=== PATIENT | female | born 1990 | race Caucasian/White ===

== ENCOUNTER 2017-09-24 13:26 | Emergency (ER) | payer BC ==
[2017-09-24 14:00] LABS: Urine Bacteria 20-50 /HPF (<20); Urine Culture Reflex Order REFLEXED
[2017-09-24 14:03] LABS: Urine Blood 2+ (NEG); Urine Glucose NEGATIVE (NEG); Urine Protein TRACE (NEG); Urine Specific Gravity <1.005 (1.005-1.030)
[2017-09-24] MEDS ORDERED: ONDANSETRON 4 MG/2 ML VIAL ONE (14:04)
[2017-09-24 14:08] LABS: Absolute Lymphocytes (CBC) 2.5 K/uL (0.7-4.9); Absolute Monocytes 0.7 K/uL (0.1-1.3); Absolute Neutrophil 8.1 K/uL (1.8-8.0); Basophils % 0.7 % (0-1.3); Eosinophils % 1.7 % (0-4.4); Hematocrit 47.3 % (36.0-45.0); Lymphocytes % 21.9 % (15.3-44.8); MCH 27.9 pg (27.0-35.0); MCV 84.1 fL (80-100); Monocytes % 5.7 % (3.3-12.3); RBC Red Blood Cell Count 5.62 M/uL (3.86-4.86)
[2017-09-24] MEDS ORDERED: CEFTRIAXONE/SWI 1gm 1 GM/10 ML SYR ONE (14:08)
[2017-09-24 15:01] LABS: BUN Blood Urea Nitrogen 9 mg/dL (6-20); Bicarbonate 26 mEq/L (21-31); Glucose Level 102 mg/dL (65-120); Potassium 4.2 mEq/L (3.6-5.0); Sodium Level 136 mEq/L (135-145)
--- NOTE | 2017-09-24 15:38 | RAD REPORT ---
EXAM DESCRIPTION: CTAbdomen Pelvis W Contrast - 09/24/2017 3:30 pm CLINICAL HISTORY: Abdominal pain. COMPARISON: 11/28/2014 TECHNIQUE: Biphasic CT imaging of the abdomen and pelvis was performed with 100 ml non-ionic IV cont rast. All CT scans are performed using dose optimization technique as appropriate and may include automated exposure control or mA/KV adjustment according to patient size. FINDINGS: The lung bases are clear. The liver demonstrates diffuse fatty infiltration. The spleen, pancreas, adrenal glands and kidneys a re within normal limits. No bowel obstruction, free air, free fluid or abscess. Appendectomy. No evidence of significant lym phadenopathy. No suspicious bony findings. IMPRESSION: No acute intra-abdominal or pelvic finding.
--- NOTE | 2017-09-24 15:53 | EDPHYS ---
Physician Documentation [facility] Name: Peyton Shen Age: 27 yrs Sex: Female : 1990 Arrival Date: 09/24/2017 Time: 13:28 Bed 5 Private MD: Tory Lee ED Physician Adalid Mercado HPI: 09/24 14:28 This 27 yrs old Female presents to ER via Ambulatory with complaints of Back jr8 Pain, Pelvic Pain, Urinary Problem. 14:28 The patient presents with pain that is acute. The symptoms are located in the low back. jr8 Onset: The symptoms/episode began/occurred gradually, 2 day(s) ago. The pain radiates to the abdomen. Associated signs and symptoms: Pertinent positives: dysuria. Modifying factors: The patient symptoms are alleviated by nothing, the patient symptoms are aggravated by urinating. Severity of symptoms: At their worst the symptoms were moderate, in the emergency department the symptoms are unchanged. The patient has not experienced similar symptoms in the past. The patient has not recently seen a physician. Historical: - Allergies: 13:47 No Known Allergies; ss - Home Meds: 13:47 metformin 500 mg Oral tab 1 tab 2 times per day [Active]; BuSpar Oral 10 mg twice a day ss [Active]; spironolactone 100 mg Oral tab 1 tab 2 times per day [Active]; - PMHx: 13:47 PCOS; Anxiety; ss - PSHx: 13:47 C SECTION; Appendectomy; D\T\C; ss - Immunization history:: Adult Immunizations up to date. - Social history:: Smoking status: Patient/guardian denies using tobacco. - Ebola Screening: : Patient denies exposure to infectious person Patient denies travel to an Ebola-affected area in the 21 days before illness onset. ROS: 14:28 Eyes: Negative for injury, pain, redness, and discharge, ENT: Negative for injury, jr8 pain, and discharge, Neck: Negative for injury, pain, and swelling, Cardiovascular: Negative for chest pain, palpitations, and edema, Respiratory: Negative for shortness of breath, cough, wheezing, and pleuritic chest pain, MS/Extremity: Negative for injury and deformity, Skin: Negative for injury, rash, and discoloration, Neuro: Negative for headache, weakness, numbness, tingling, and seizure. 14:28 Abdomen/GI: Positive for abdominal pain, nausea, Negative for vomiting, diarrhea, constipation, abdominal cramps, abdominal distension, hematemesis, black/tarry stool, rectal pain, rectal bleeding, bowel incontinence, flatulence. 14:28 Back: Positive for pain at rest, flank pain, on the right, Negative for pain with movement. 14:28 : Positive for urinary symptoms, hematuria, burning with urination. Exam: 14:28 Cardiovascular: Regular rate and rhythm with a normal S1 and S2. No gallops, murmurs, jr8 or rubs. Normal PMI, no JVD. No pulse deficits. Respiratory: Lungs have equal breath sounds bilaterally, clear to auscultation and percussion. No rales, rhonchi or wheezes noted. No increased work of breathing, no retractions or nasal flaring. Skin: Warm, dry with normal turgor. Normal color with no rashes, no lesions, and no evidence of cellulitis. MS/ Extremity: Pulses equal, no cyanosis. Neurovascular intact. Full, normal range of motion. Neuro: Awake and alert, GCS 15, oriented to person, place, time, and situation. Cranial nerves II-XII grossly intact. Motor strength 5/5 in all extremities. Sensory grossly intact. Cerebellar exam normal. Normal gait. 14:28 Abdomen/GI: Inspection: obese Bowel sounds: active, Palpation: moderate abdominal tenderness, in the anterior aspect of right lateral abdomen, mass, is not appreciated, rebound tenderness, is not appreciated, voluntary guarding, is not appreciated, involuntary guarding, is not appreciated, no appreciated organomegaly, Indicators: McBurney's point is not tender, Andujar's sign is negative, Rovsing's sign is negative, Liver: no appreciated palpable abnormalities, tenderness, is not appreciated. 14:28 Back: pain, is absent, CVA tenderness, that is mild, is noted on the right, muscle spasm, is not present. Vital Signs: 13:41 BP 151 / 112; Pulse 110; Pulse Ox 100% ; sv 13:47 Resp 16; Temp 97.7(TE); Weight 108.86 kg; Height 5 ft. 6 in. (167.64 cm); Pain 4/10; ss 14:44 BP 130 / 91; Pulse 65; Resp 20; Pulse Ox 99% ; sv 15:19 BP 128 / 92; Pulse 98; Resp 18; Pulse Ox 100% ; sv 13:47 Body Mass Index 38.74 (108.86 kg, 167.64 cm) ss MDM: 13:38 Patient medically screened. jr8 15:48 Differential diagnosis: Hydronephrosis Pyelonephritis Ureterolithiasis jr8 cystitis. appendicitis, colitis. Data reviewed: vital signs, nurses notes, lab test result(s), radiologic studies, CT scan, and as a result, I will discharge patient. Data interpreted: Pulse oximetry: on room air is 100 %. Interpretation: normal. Counseling: I had a detailed discussion with the patient and/or guardian regarding: the historical points, exam findings, and any diagnostic results supporting the discharge/admit diagnosis, lab results, radiology results, the need for outpatient follow up, a family practitioner, to return to the emergency department if symptoms worsen or persist or if there are any questions or concerns that arise at home. Response to treatment: the patient's symptoms have markedly improved after treatment. 09/24 13:38 Order name: Urine Microscopic Only; Complete Time: 14:04 [facility] 09/24 13:48 Order name: Basic Metabolic Panel; Complete Time: 15:13 [facility] 09/24 13:48 Order name: CBC with Diff; Complete Time: 14:25 [facility] 09/24 13:48 Order name: Creatinine for Radiology; Complete Time: 15:13 09/24 13:49 Order name: Test, Serum; Complete Time: 15:13 09/24 13:50 Order name: Urine Dipstick--Ancillary (enter results) ag 09/24 13:38 Order name: Urine Test (obtain specimen); Complete Time: 13:52 [facility] 09/24 13:38 Order name: Urine Dipstick-Ancillary (obtain specimen); Complete Time: 13:52 [facility] 09/24 13:48 Order name: IV Saline Lock; Complete Time: 14:49 [facility] 09/24 13:51 Order name: Urine Dipstick-Ancillary; Complete Time: 14:04 [facility] 09/24 14:03 Order name: Urine Culture [facility] 09/24 15:14 Order name: CT Abd/Pelvis - W/Contrast; Complete Time: 15:48 09/24 13:48 Order name: Labs collected and sent; Complete Time: 14:49 09/24 14:30 Order name: Labs - recollect needed: green top/ hemolyzed; Complete Time: 14:43 sg Administered Medications: 14:05 Drug: Zofran 4 mg Route: IVP; Site: right antecubital; sv 14:43 Follow up: Response: No adverse reaction sv 14:11 Drug: Rocephin 1 grams Route: IV; Rate: calculated rate; Site: right antecubital; sv 14:16 Follow up: Response: No adverse reaction; IV Status: Completed infusion; IV Intake: 10mlsv Disposition: 09/24/17 15:53 Discharged to Home. Impression: Acute cystitis with hematuria. - Condition is Stable. - Discharge Instructions: Urinary Tract Infection. - Prescriptions for Ibuprofen 800 mg Oral Tablet - take 1 tablet by ORAL route every 12 hours As needed take with food; 20 tablet. Pyridium 200 mg Oral Tablet - take 1 tablet by ORAL route every 8 hours for 3 days; 9 tablet. Zofran 4 mg Oral Tablet - take 1 tablet by ORAL route every 12 hours As needed; 20 tablet. Macrobid 100 mg Oral Capsule - take 1 capsule by ORAL route every 12 hours for 7 days; 14 capsule. - Medication Reconciliation Form, Thank You Letter, Antibiotic Education, Prescription Opioid Use form. - Follow up: Tory Lee MD; When: 5 - 6 days; Reason: Recheck today's complaints, Continuance of care, Re-evaluation by your physician. - Problem is new. - Symptoms have improved. Addendum: 10/02/2017 11:28 Co-signature as Attending Physician, Adalid Mercado MD. g s Signatures: Dispatcher Med[employer] Adriane Gomez RN RN Irving Vargas RN RN sg Smirch, Shelby, RN RN ss Roszak, Josh, PA PA jr Adalid Mercado MD MD Corrections: (The following items were deleted from the chart) 09/24 16:32 15:53 09/24/2017 15:53 Discharged to Home. Impression: Acute cystitis with hematuria. sv Condition is Stable. Forms are Medication Reconciliation Form, Thank You Letter, Antibiotic Education, Prescription Opioid Use. Follow up: Tory Lee; When: 5 - 6 days; Reason: Recheck today's complaints, Continuance of care, Re-evaluation by your physician. Problem is new. Symptoms have improved. jr8
--- NOTE | 2017-09-24 15:53 | ER ---
Nurse's Notes [facility] Name: Peyton Shen Age: 27 yrs Sex: Female : 1990 Arrival Date: 09/24/2017 Time: 13:28 Bed 5 Private MD: Tory Lee Diagnosis: Acute cystitis with hematuria Presentation: 09/24 13:44 Presenting complaint: Patient states: low back pain x 2 days. Pt reports that she ss noticed blood in her urine two days ago as well and just began drinking lots of water and cranberry juice. Pt now states there is not blood in her urine today but she is having pressure and burning with urination. Transition of care: patient was not received from another setting of care. Onset of symptoms was September 22, 2017. Risk Assessment: Do you want to hurt yourself or someone else? Patient reports no desire to harm self or others. Initial Sepsis Screen: Does the patient meet any 2 criteria? No. Patient's initial sepsis screen is negative. Does the patient have a suspected source of infection? Yes: Dysuria/Frequency/Urgency/UTI. Care prior to arrival: None. 13:44 Method Of Arrival: Ambulatory ss 13:44 Acuity: BEN 3 ss Historical: - Allergies: 13:47 No Known Allergies; ss - Home Meds: 13:47 metformin 500 mg Oral tab 1 tab 2 times per day [Active]; BuSpar Oral 10 mg twice a day ss [Active]; spironolactone 100 mg Oral tab 1 tab 2 times per day [Active]; - PMHx: 13:47 PCOS; Anxiety; ss - PSHx: 13:47 C SECTION; Appendectomy; D\T\C; ss - Immunization history:: Adult Immunizations up to date. - Social history:: Smoking status: Patient/guardian denies using tobacco. - Ebola Screening: : Patient denies exposure to infectious person Patient denies travel to an Ebola-affected area in the 21 days before illness onset. Screenin:50 Abuse screen: Denies threats or abuse. Denies injuries from another. Nutritional sv screening: No deficits noted. Tuberculosis screening: No symptoms or risk factors identified. Fall Risk None identified. Assessment: 13:50 General: Appears in no apparent distress. uncomfortable, obese, well developed, sv Behavior is calm, cooperative, appropriate for age. Pain: Complains of pain in low back area Pain radiates to right lower quadrant and left lower quadrant Pain currently is 4 out of 10 on a pain scale. Quality of pain is described as shooting, Pain began 2-3 days ago. Is intermittent. Neuro: Level of Consciousness is awake, alert, obeys commands, Oriented to person, place, time, situation, Moves all extremities. Full function Gait is steady, Speech is normal. Cardiovascular: Patient's skin is warm and dry. Respiratory: Respiratory effort is even, unlabored, Respiratory pattern is regular, symmetrical. : Reports burning with urination, pain in suprapubic area in lower back with urination, small blood clots in urine about 2 days ago. Derm: Skin is pink, warm \T\ dry. Musculoskeletal: Range of motion: intact in all extremities. 14:11 Reassessment: Patient appears in no apparent distress at this time. No changes from sv previously documented assessment. Patient and/or family updated on plan of care and expected duration. Pain level reassessed. Patient is alert, oriented x 3, equal unlabored respirations, skin warm/dry/pink. 16:00 Reassessment: Patient appears in no apparent distress at this time. No changes from sv previously documented assessment. Patient and/or family updated on plan of care and expected duration. Pain level reassessed. Patient is alert, oriented x 3, equal unlabored respirations, skin warm/dry/pink. Vital Signs: 13:41 BP 151 / 112; Pulse 110; Pulse Ox 100% ; sv 13:47 Resp 16; Temp 97.7(TE); Weight 108.86 kg; Height 5 ft. 6 in. (167.64 cm); Pain 4/10; ss 14:44 BP 130 / 91; Pulse 65; Resp 20; Pulse Ox 99% ; sv 15:19 BP 128 / 92; Pulse 98; Resp 18; Pulse Ox 100% ; sv 13:47 Body Mass Index 38.74 (108.86 kg, 167.64 cm) ED Course: 13:28 Patient arrived in ED. as 13:29 Tory Lee MD is Private Physician. as 13:38 [facility]. jr8 13:38 Adalid Mercado MD is Attending Physician. jr8 13:38 Adriane Harrison RN is Primary Nurse. sv 13:46 Triage completed. ss 13:47 Arm band placed on right wrist. ss 13:50 Patient has correct armband on for positive identification. Bed in low position. Call sv light in reach. Side rails up X2. Pulse ox on. NIBP on. Door closed. Head of bed elevated. 13:52 Urine Dipstick--Ancillary (enter results) Sent. sv 13:55 Initial lab(s) drawn, by me, sent to lab. Inserted saline lock: 20 gauge in right sv antecubital area, using aseptic technique. Blood collected. Flushed right antecubital with 5 ml normal saline. 14:44 Lab(s) recollected, by me, sent to lab. sg 15:[address] oh 15:30 CT completed. Patient tolerated procedure well. Patient moved back from CT. oh 15:30 CT Abd/Pelvis - W/Contrast In Process Unspecified. EDAZ 15:52 Toyr Lee MD is Referral Physician. jr 16:00 No provider procedures requiring assistance completed. IV discontinued, intact, sv bleeding controlled, No redness/swelling at site. Pressure dressing applied. Administered Medications: 14:05 Drug: Zofran 4 mg Route: IVP; Site: right antecubital; sv 14:43 Follow up: Response: No adverse reaction sv 14:11 Drug: Rocephin 1 grams Route: IV; Rate: calculated rate; Site: right antecubital; sv 14:16 Follow up: Response: No adverse reaction; IV Status: Completed infusion; IV Intake: 10mlsv Intake: 14:16 IV: 10ml; Total: 10ml. Outcome: 15:53 Discharge ordered by . jr 16:00 Discharged to home ambulatory, with family. 16:00 Condition: stable 16:00 Discharge instructions given to patient, Instructed on discharge instructions, follow up and referral plans. medication usage, Demonstrated understanding of instructions, follow-up care, medications, Prescriptions given X 4. 16:00 Patient left the ED. sv Addendum: 09/27/2017 07:46 Addendum: Culture Results: Positive urine culture. No further action required. Bacteria i w sensitive to prescribed antibiotic. Signatures: Dispatcher MedHo EDAZ Adriane Harrison RN RN Irving Vargas RN RN sg Martinez, Amelia as Williams, Irene, RN RN Haily Ta RN RN ss Rony Garza PA PA jr8 Tal Andrews Corrections: (The following items were deleted from the chart) 09/24 16:32 16:32 Patient left the ED. sv sv
[2017-09-24 17:27] VITALS: TEMP 97.7
[2017-09-24 17:29] VITALS: BP 128/92; O2SAT 100
== END 2017-09-24 16:32 | disposition home or self-care (01) ==
LOC: ER 13:26
DX: N30.01 Acute cystitis with hematuria (principal); F41.9 Anxiety disorder, unspecified
CPT/HCPCS: 36415; 74177; 80048; 81003; 81015; 84703; 85025; 87077; 87086; 87088; 87186; 96374; 96375; 99284; J0696; J2405; Q9967

== ENCOUNTER 2018-05-09 08:06 | Emergency (ER) | payer BC ==
--- NOTE | 2018-05-09 08:39 | EDPHYS ---
Physician Documentation [facility] Name: Peyton Shen Age: 28 yrs Sex: Female : 1990 Arrival Date: 05/09/2018 Time: 08:09 Bed 20 Private MD: Tory Lee ED Physician Talat Wilkins HPI: 05/09 08:26 This 28 yrs old Female presents to ER via Ambulatory with complaints of Bump pm1 on head. 08:26 The patient or guardian reports swelling, tenderness. The complaints affect the left pm1 post auricular. Context of injury: The problem was sustained at home. Onset: The symptoms/episode began/occurred yesterday. Associated signs and symptoms: Pertinent negatives: headache, neck pain, Fever. Severity of symptoms: in the emergency department the symptoms are actually worse. The patient has not experienced similar symptoms in the past. The patient has not recently seen a physician. Patient reports exposure to cats. Denies any bite or scratches. No URI symptoms. No earache or sore throat. 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 - Social history:: Smoking status: Patient/guardian denies using tobacco. - Ebola Screening: : No symptoms or risks identified at this time. ROS: 08:26 Constitutional: Negative for fever, chills, and weight loss, Eyes: Negative for injury, pm1 pain, redness, and discharge, ENT: Negative for injury, pain, and discharge, Neck: Negative for injury, pain, and swelling, Cardiovascular: Negative for chest pain, palpitations, and edema, Respiratory: Negative for shortness of breath, cough, wheezing, and pleuritic chest pain, Abdomen/GI: Negative for abdominal pain, nausea, vomiting, diarrhea, and constipation, Back: Negative for injury and pain, : Negative for injury, bleeding, discharge, and swelling, MS/Extremity: Negative for injury and deformity, Skin: Negative for injury, rash, and discoloration, Neuro: Negative for headache, weakness, numbness, tingling, and seizure. Exam: 08:26 Constitutional: This is a well developed, well nourished patient who is awake, alert, pm1 and in no acute distress. 08:26 Eyes: Pupils equal round and reactive to light, extra-ocular motions intact. Lids and lashes normal. Conjunctiva and sclera are non-icteric and not injected. Cornea within normal limits. Periorbital areas with no swelling, redness, or edema. ENT: Nares patent. No nasal discharge, no septal abnormalities noted. Tympanic membranes are normal and external auditory canals are clear. Oropharynx with no redness, swelling, or masses, exudates, or evidence of obstruction, uvula midline. Mucous membranes moist. Neck: Trachea midline, no thyromegaly or masses palpated, and no cervical lymphadenopathy. Supple, full range of motion without nuchal rigidity, or vertebral point tenderness. No Meningismus. Chest/axilla: Normal chest wall appearance and motion. Nontender with no deformity. No lesions are appreciated. Cardiovascular: Regular rate and rhythm with a normal S1 and S2. No gallops, murmurs, or rubs. Normal PMI, no JVD. No pulse deficits. Respiratory: Lungs have equal breath sounds bilaterally, clear to auscultation and percussion. No rales, rhonchi or wheezes noted. No increased work of breathing, no retractions or nasal flaring. Abdomen/GI: Soft, non-tender, with normal bowel sounds. No distension or tympany. No guarding or rebound. No evidence of tenderness throughout. Back: No spinal tenderness. No costovertebral tenderness. Full range of motion. Skin: Warm, dry with normal turgor. Normal color with no rashes, no lesions, and no evidence of cellulitis. MS/ Extremity: Pulses equal, no cyanosis. Neurovascular intact. Full, normal range of motion. 08:26 Head/face: Noted is no obvious of injury or deformity except post left auricular lymph node swollen. 08:26 Neuro: Orientation: is normal, Motor: moves all fours, Gait: is steady, at a normal pace, without difficulty. Vital Signs: 08:15 BP 143 / 92; Pulse 84; Resp 18 S; Pulse Ox 100% on R/A; Weight 104.33 kg (R); Height 5 aa5 ft. 6 in. (167.64 cm) (R); Pain 5/10; 08:15 Body Mass Index 37.12 (104.33 kg, 167.64 cm) aa5 MDM: 08:12 Patient medically screened. pm1 08:26 Data reviewed: vital signs. Data interpreted: Pulse oximetry: on room air is 100 %. pm1 Interpretation: normal. Counseling: I had a detailed discussion with the patient and/or guardian regarding: the historical points, exam findings, and any diagnostic results supporting the discharge/admit diagnosis, the need for outpatient follow up, to return to the emergency department if symptoms worsen or persist or if there are any questions or concerns that arise at home. Administered Medications: No medications were administered Disposition: 11:39 Co-signature as Attending Physician, Talat Wilkins MD I agree with the assessment and tw4 plan of care. Disposition: 05/09/18 08:38 Discharged to Home. Impression: Acute lymphadenitis. - Condition is Stable. - Discharge Instructions: Lymphadenopathy. - Prescriptions for Tylenol- Codeine #3 300-30 mg Oral Tablet - take 2 tablets by ORAL route every 6 hours As needed; 20 tablet. Augmentin 875- 125 mg Oral Tablet - take 1 tablet by ORAL route every 12 hours for 10 days; 20 tablet. - Medication Reconciliation Form, Thank You Letter, Antibiotic Education, Prescription Opioid Use form. - Follow up: Emergency Department; When: As needed; Reason: Worsening of condition. Follow up: Private Physician; When: 2 - 3 days; Reason: Recheck today's complaints, Continuance of care, Re-evaluation by your physician. - Problem is new. - Symptoms have improved. Signatures: Dallas Georges, LEANDRO BARBERING TEACHER Ghada Knott, RN RN aa5 Abhi Sherwood, SNOW PLOW TRACTOR OPERATOR SNOW PLOW TRACTOR OPERATOR pm1 Talat Wilkins MD MD tw4 Corrections: (The following items were deleted from the chart) 08:54 08:38 05/09/2018 08:38 Discharged to Home. Impression: Acute lymphadenitis. Condition em is Stable. Forms are Medication Reconciliation Form, Thank You Letter, Antibiotic Education, Prescription Opioid Use. Follow up: Emergency Department; When: As needed; Reason: Worsening of condition. Follow up: Private Physician; When: 2 - 3 days; Reason: Recheck today's complaints, Continuance of care, Re-evaluation by your physician. Problem is new. Symptoms have improved. pm1
--- NOTE | 2018-05-09 08:39 | ER ---
Nurse's Notes [facility] Name: Peyton Shen Age: 28 yrs Sex: Female : 1990 Arrival Date: 05/09/2018 Time: 08:09 Bed 20 Private MD: Tory Lee Diagnosis: Acute lymphadenitis Presentation: 05/09 08:13 Presenting complaint: Patient states: "I have a bump on the left side of the back of my aa5 head that I noticed on and it's painful". 08:13 Transition of care: patient was not received from another setting of care. Onset of aa5 symptoms was April 2018. Risk Assessment: Do you want to hurt yourself or someone else? Patient reports no desire to harm self or others. Initial Sepsis Screen: Does the patient meet any 2 criteria? No. Patient's initial sepsis screen is negative. Does the patient have a suspected source of infection? No. Patient's initial sepsis screen is negative. Care prior to arrival: None. 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 - Social history:: Smoking status: Patient/guardian denies using tobacco. - Ebola Screening: : No symptoms or risks identified at this time. Screenin:28 Abuse screen: Denies threats or abuse. Nutritional screening: No deficits noted. em Tuberculosis screening: No symptoms or risk factors identified. Fall Risk None identified. Assessment: 08:20 General: Appears in no apparent distress. comfortable, Behavior is calm, cooperative, em Reports swollen and tender to ear behind the left ear Denies fever. Pain: Complains of pain in behind left ear Pain does not radiate. Quality of pain is described as tender, Is continuous. Neuro: Level of Consciousness is awake, alert, obeys commands, Oriented to person, place, time, situation, Denies headache. Cardiovascular: Patient's skin is warm and dry. Respiratory: Airway is patent Respiratory effort is even, unlabored, Respiratory pattern is regular, symmetrical. EENT: Nares are clear Oral mucosa is moist. Throat is clear. Derm: Musculoskeletal: Range of motion: intact in all extremities. 08:20 Reassessment: I agree with assessment completed by Dallas Georges LVN. aa5 Vital Signs: 08:15 BP 143 / 92; Pulse 84; Resp 18 S; Pulse Ox 100% on R/A; Weight 104.33 kg (R); Height 5 aa5 ft. 6 in. (167.64 cm) (R); Pain 5/10; 08:15 Body Mass Index 37.12 (104.33 kg, 167.64 cm) aa5 ED Course: 08:09 Patient arrived in ED. mr 08:09 Tory Lee MD is Private Physician. mr 08:12 [facility] Sher[facility] pm1 08:12 Talat Wilkins MD is Attending Physician. pm1 08:14 Arm band placed on Patient placed in an exam room, on a stretcher. aa5 08:15 Triage completed. aa5 08:25 Dallas Georges LVN is Primary Nurse. em 08:28 Patient has correct armband on for positive identification. Bed in low position. Call em light in reach. 08:48 No provider procedures requiring assistance completed. Patient did not have IV access em during this emergency room visit. Administered Medications: No medications were administered Outcome: 08:38 Discharge ordered by MD. pm1 08:48 Discharged to home ambulatory. em 08:48 Condition: good 08:48 Discharge instructions given to patient, Instructed on discharge instructions, follow up and referral plans. no drinking with medication, no driving heavy equipment, medication usage, Demonstrated understanding of instructions, follow-up care, medications, Prescriptions given X 2. 08:54 Patient left the ED. em Signatures: Isis Souza mr Dallas Georges LVN LVN em Ghada Hurst RN RN aa5 Abhi Sherwood NP WAITER/WAITRESS FIRST CLASS pm1 Corrections: (The following items were deleted from the chart) 08:25 08:15 Pulse 84bpm; Resp 18bpm; Spontaneous; Pulse Ox 100% RA; 104.33 kg Reported; aa5 Height 5 ft. 6 in. Reported; BMI: 37.1; Pain 5/10; aa5 18:22 08:20 Pain: Complains of pain in left temporal area and left occipital area em aa5
[2018-05-09 09:01] VITALS: BP 143/92; O2SAT 100
== END 2018-05-09 08:54 | disposition home or self-care (01) ==
LOC: ER 08:06
DX: L04.9 Acute lymphadenitis, unspecified (principal); Z91.02 Food additives allergy status

== ENCOUNTER 2019-10-02 20:23 | Emergency (ER) | payer BC ==
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
[2019-10-02] MEDS ORDERED: MECLIZINE HCL 12.5 MG TAB ONE (21:13)
[2019-10-02] MEDS ORDERED: ONDANSETRON 4 MG (ODT) TAB ONE (21:13)
--- NOTE | 2019-10-02 22:06 | EDPHYS ---
Physician Documentation [facility] Name: Peyton Shen Age: 29 yrs Sex: Female : 1990 Arrival Date: 10/02/2019 Time: 20:26 Bed 19 Private MD: Tory Lee ED Physician Talat Wilkins HPI: 10/01 21:53 This 29 yrs old Female presents to ER via Wheelchair with complaints of tw4 Dizziness. 21:53 The patient presents with sense of spinning, vertigo. Onset: The symptoms/episode tw4 began/occurred today. Context: occurred at home, occurred while the patient was. Modifying factors: The symptoms are alleviated by closing eyes, lying down, the symptoms are aggravated by movement of head, standing up, changing position. Associated signs and symptoms: The patient has no apparent associated signs or symptoms. Severity of symptoms: At their worst the symptoms were moderate in the emergency department the symptoms are unchanged. The patient has not experienced similar symptoms in the past. 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 - Social history:: Smoking status: Patient/guardian denies using tobacco. ROS: 21:53 Constitutional: Negative for fever, chills, and weight loss, Cardiovascular: Negative tw4 for chest pain, palpitations, and edema, Respiratory: Negative for shortness of breath, cough, wheezing, and pleuritic chest pain, Back: Negative for injury and pain, MS/Extremity: Negative for injury and deformity. 21:53 Abdomen/GI: Positive for nausea and vomiting. 21:53 Neuro: Positive for dizziness, Negative for altered mental status, dizziness. Exam: 21:53 Constitutional: This is a well developed, well nourished patient who is awake, alert, tw4 and in no acute distress. Head/Face: Normocephalic, atraumatic. Chest/axilla: Normal chest wall appearance and motion. Nontender with no deformity. No lesions are appreciated. Cardiovascular: Regular rate and rhythm with a normal S1 and S2. No gallops, murmurs, or rubs. Normal PMI, no JVD. No pulse deficits. Respiratory: Lungs have equal breath sounds bilaterally, clear to auscultation and percussion. No rales, rhonchi or wheezes noted. No increased work of breathing, no retractions or nasal flaring. Abdomen/GI: Soft, non-tender, with normal bowel sounds. No distension or tympany. No guarding or rebound. No evidence of tenderness throughout. MS/ Extremity: Pulses equal, no cyanosis. Neurovascular intact. Full, normal range of motion. Neuro: Awake and alert, GCS 15, oriented to person, place, time, and situation. Cranial nerves II-XII grossly intact. Motor strength 5/5 in all extremities. Sensory grossly intact. Cerebellar exam normal. Normal gait. Vital Signs: 20:29 BP 146 / 100; Pulse 85; Resp 18; Temp 97.1; Pulse Ox 98% on R/A; Weight 113.4 kg (R); aj1 Height 5 ft. 6 in. (167.64 cm) (R); Pain 0/10; 22:00 BP 133 / 95; Pulse 81; Resp 18; Pulse Ox 97% on R/A; wh 20:29 Body Mass Index 40.35 (113.40 kg, 167.64 cm) aj1 MDM: 20:39 Patient medically screened. tw4 21:53 Differential diagnosis: vertigo. Data reviewed: vital signs, nurses notes. Data tw4 interpreted: Pulse oximetry: Interpretation:. Counseling: I had a detailed discussion with the patient and/or guardian regarding: the historical points, exam findings, and any diagnostic results supporting the discharge/admit diagnosis. Medication response: Zofran relieved the patient's nausea. meclzine. Response to treatment: and as a result, I will discharge patient. Special discussion: I discussed with the patient/guardian in detail that at this point there is no indication for admission to the hospital. It is understood, however, that if the symptoms persist or worsen the patient needs to return immediately for re-evaluation. Administered Medications: 21:07 Drug: Meclizine 50 mg Route: PO; 22:16 Follow up: Response: No adverse reaction; Marked relief of symptoms 21:07 Not Given (Physician Discretion): Zofran (Ondansetron) 4 mg IVP once; over 2 minutes 21:07 Drug: Zofran (Ondansetron) 4 mg Route: PO; 22:16 Follow up: Response: No adverse reaction; Nausea is decreased Disposition: 10/02/19 22:06 Discharged to Home. Impression: Vertigo of central origin, unspecified ear. - Condition is Stable. - Discharge Instructions: Dizziness, Vertigo. - Prescriptions for Meclizine 25 mg Oral Tablet - take 1 tablet by ORAL route every 8 hours As needed; 30 tablet. Zofran 4 mg Oral Tablet - take 1 tablet by ORAL route every 12 hours As needed; 6 tablet. - Medication Reconciliation Form, Thank You Letter, Antibiotic Education, Prescription Opioid Use form. - Follow up: Tory Lee MD; When: Upon discharge from the Emergency Department; Reason: Recheck today's complaints, Continuance of care, Re-evaluation by your physician. - Problem is new. - Symptoms have improved. Signatures: Genny Ramirez RN RN aj1 Lennox Arndt Talat Wilkins MD MD tw4 Corrections: (The following items were deleted from the chart) 22:17 22:06 10/02/2019 22:06 Discharged to Home. Impression: Vertigo of central origin, wh unspecified ear. Condition is Stable. Forms are Medication Reconciliation Form, Thank You Letter, Antibiotic Education, Prescription Opioid Use. Follow up: Tory Lee; When: Upon discharge from the Emergency Department; Reason: Recheck today's complaints, Continuance of care, Re-evaluation by your physician. Problem is new. Symptoms have improved. tw4
--- NOTE | 2019-10-02 22:06 | ER ---
Nurse's Notes [facility] Name: Peyton Shen Age: 29 yrs Sex: Female : 1990 Arrival Date: 10/02/2019 Time: 20:26 Bed 19 Private MD: Tory Lee Diagnosis: Vertigo of central origin, unspecified ear Presentation: 10/01 20:29 Chief complaint: Patient states: She started to feel dizzy when she went shopping at aj1 1815 today, states that when she first got dizzy her heart felt like it was beating fast "like I was anxious" and it has gotten progressively worse since then. Reports nausea. Denies fever, denies hitting head. States "I just feel like I'm drunk". Coronavirus screen: Patient denies a cough. Patient denies shortness of breath or difficulty breathing. Patient denies measured and/or subjective temperature greater than 100.4F prior to today's visit. Patient denies travel on a cruise ship or to a country the [facility] currently lists as an affected area. Patient denies contact with known and/or suspected case of COVID-19. Ebola Screen: Patient denies travel to an Ebola-affected area in the 21 days before illness onset. Initial Sepsis Screen: Does the patient meet any 2 criteria? No. Patient's initial sepsis screen is negative. Does the patient have a suspected source of infection? No. Patient's initial sepsis screen is negative. Risk Assessment: Do you want to hurt yourself or someone else? Patient reports no desire to harm self or others. Onset of symptoms was October 02, 2019. 20:29 Method Of Arrival: Wheelchair aj1 20:29 Acuity: BEN 3 aj1 Triage Assessment: 20:33 General: Appears in no apparent distress. uncomfortable, Behavior is calm, cooperative, aj1 appropriate for age. Pain: Denies pain. Neuro: Level of Consciousness is awake, alert, obeys commands, Oriented to person, place, time, situation, Reports dizziness. Cardiovascular: Patient's skin is warm and dry. Respiratory: Airway is patent Respiratory effort is even, unlabored, Respiratory pattern is regular, symmetrical. 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 - Social history:: Smoking status: Patient/guardian denies using tobacco. Screenin:30 Abuse screen: Denies threats or abuse. Denies injuries from another. Nutritional wh screening: No deficits noted. Tuberculosis screening: No symptoms or risk factors identified. Fall Risk None identified. Assessment: 20:30 General: Appears in no apparent distress. Behavior is calm, cooperative, appropriate wh for age. Pain: Denies pain. Neuro: Level of Consciousness is awake, alert, obeys commands, Oriented to person, place, time, situation, Appropriate for age Management Accountant are equal bilaterally Moves all extremities. Gait is steady, Speech is normal, Facial symmetry appears normal, Pupils are PERRLA, Reports dizziness. Cardiovascular: Heart tones S1 S2. Respiratory: Airway is patent Respiratory effort is even, unlabored, Respiratory pattern is regular, symmetrical, Breath sounds are clear bilaterally. GI: Abdomen is flat, non-distended. : No signs and/or symptoms were reported regarding the genitourinary system. EENT: No signs and/or symptoms were reported regarding the EENT system. Derm: Skin is intact, is healthy with good turgor, Skin is pink, warm \\T\\ dry. normal. Musculoskeletal: Circulation, motion, and sensation intact. 22:00 Reassessment: Patient appears in no apparent distress at this time. No changes from previously documented assessment. Patient and/or family updated on plan of care and expected duration. Pain level reassessed. Patient is alert, oriented x 3, equal unlabored respirations, skin warm/dry/pink. Patient states feeling better. Patient states symptoms have improved. Vital Signs: 20:29 BP 146 / 100; Pulse 85; Resp 18; Temp 97.1; Pulse Ox 98% on R/A; Weight 113.4 kg (R); aj1 Height 5 ft. 6 in. (167.64 cm) (R); Pain 0/10; 22:00 BP 133 / 95; Pulse 81; Resp 18; Pulse Ox 97% on R/A; wh 20:29 Body Mass Index 40.35 (113.40 kg, 167.64 cm) [facility] ED Course: 20:26 Patient arrived in ED. es 20:26 Tory Lee MD is Private Physician. es 20:30 Patient has correct armband on for positive identification. Bed in low position. Call light in reach. Side rails up X 1. Pulse ox on. NIBP on. 20:32 Triage completed. aj1 20:33 Arm band placed on Patient placed in an exam room. aj1 20:36 Lennox Arndt is Primary Nurse. 20:39 Talat Wilkins MD is Attending Physician. tw4 22:05 Tory Lee MD is Referral Physician. tw4 22:15 No provider procedures requiring assistance completed. Patient did not have IV access during this emergency room visit. Administered Medications: 21:07 Drug: Meclizine 50 mg Route: PO; 22:16 Follow up: Response: No adverse reaction; Marked relief of symptoms 21:07 Not Given (Physician Discretion): Zofran (Ondansetron) 4 mg IVP once; over 2 minutes 21:07 Drug: Zofran (Ondansetron) 4 mg Route: PO; 22:16 Follow up: Response: No adverse reaction; Nausea is decreased Outcome: 22:06 Discharge ordered by . tw4 22:15 Discharged to home ambulatory, with family. 22:15 Condition: stable 22:15 Discharge instructions given to patient, family, Instructed on discharge instructions, follow up and referral plans. medication usage, POC Demonstrated understanding of instructions, follow-up care, medications, POC Prescriptions given X 2. 22:17 Patient left the ED. Signatures: Genny Ramirez, RN RN aj Zeinab Jamison Lennox Arndt Talat Wilkins MD MD tw4
[2019-10-02 22:26] VITALS: TEMP 97.1
[2019-10-02 22:34] VITALS: BP 133/95; O2SAT 97
== END 2019-10-02 22:17 | disposition home or self-care (01) ==
LOC: ER 20:23
DX: H81.4 Vertigo of central origin (principal); Z91.02 Food additives allergy status
CPT/HCPCS: 99283; J8597

== ENCOUNTER 2023-02-05 00:10 | Emergency (ER) | payer OTHER ==
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
[2023-02-05 00:50] LABS: Absolute Lymphocytes (CBC) 1.9 K/uL (0.7-4.9); Hematocrit 21.9 % (36.0-45.0); Lymphocytes % 26.2 % (15.3-44.8); MCV 57.7 fL (80-100); MPV 8.9 fL (7.6-11.3); Platelets 245 thou/uL (152-406)
[2023-02-05] MEDS ORDERED: DIPHENHYDRAMINE 50 MG/ML VIAL ONE (01:12)
[2023-02-05 01:17] LABS: Potassium 3.4 mEq/L (3.5-5.1)
[2023-02-05] MEDS ORDERED: NA CHLORIDE 0.9% 250 ML ONE ×2 (02:41→04:20)
--- NOTE | 2023-02-05 03:02 | EDPHYS ---
Physician Documentation [facility] Name: Peyton Shen Age: 32 yrs Sex: Female : 1990 Arrival Date: 02/05/2023 Time: 00:10 Bed 15 Private MD: ED Physician Delmar Wolf HPI: 02/05 00:42 This 32 yrs old Female presents to ER via Ambulatory with complaints of Shortness Of sb4 Breath, vaginal bleeding. 00:42 The patient presents with vaginal bleeding that is heavy, with clots. Onset: The sb4 symptoms/episode began/occurred 5 month(s) ago. Associated signs and symptoms: Pertinent positives: palpitations, shortness of breath, dizziness, fatigue. The patient's method of control includes BCP. The patient has been recently seen by a physician: an wood box maker specialist, yesterday. 02:15 Patient reports 5 months of heavy vaginal bleeding. She has seen her tile layer supervisor sb4 several times. She has known history of PCOS. They have tried several different methods of hormonal control and a D\T\C that were all unsuccessful. She saw her BROWNELL OPERATOR yesterday who did blood work and recommended hysterectomy. Her blood work results today and she was noted to have a hemoglobin of 6.3. She states that she has been feeling progressively worsening fatigued, short of breath, palpitations. BROWNELL OPERATOR: 00:27 LMP 02/05/2023, unknown as6 00:42 3, Full Term 3, Premature 0, 0, Living 3, unknown sb4 Historical: - Allergies: 00:24 No Known Drug Allergies; as6 - PMHx: 00:24 Anxiety; gestational hypertension; PCOS; as6 - PSHx: 00:24 section; as6 - Immunization history:: Adult Immunizations up to date. - Social history:: Smoking status: Patient denies any tobacco usage or history of. ROS: 02:15 Positive for vaginal bleeding, sb4 02:15 Constitutional: Negative for fever, chills, and weight loss, 02:15 Constitutional: Positive for fatigue, 02:15 Cardiovascular: Positive for palpitations, 02:15 Respiratory: Positive for shortness of breath, 02:15 All other systems are negative, Exam: 02:15 Constitutional: This is a well developed, well nourished patient who is awake, alert, sb4 and in no acute distress. Head/Face: Normocephalic, atraumatic. Eyes: Extra-ocular motions intact. Periorbital areas with no swelling, redness, or edema. ENT: Mucous membranes moist. Skin: Warm, dry with normal turgor. Normal color with no rashes, no lesions, and no evidence of cellulitis. MS/ Extremity: Pulses equal, no cyanosis. Neurovascular intact. Full, normal range of motion. Neuro: Awake and alert, GCS 15, oriented to person, place, time, and situation. Motor strength 5/5 in all extremities. Sensory grossly intact. Vital Signs: 00:25 BP 147 / 80; Pulse 126; Resp 20 S; Temp 98.6(TE); Pulse Ox 100% on R/A; Weight 109.77 as6 kg (R); Height 5 ft. 6 in. (R); Pain 0/10; 01:20 BP 141 / 92; Pulse 109; Resp 18; Pulse Ox 100% ; rv 02:13 BP 145 / 87; Pulse 105; Resp 19; Pulse Ox 100% ; jj7 03:01 BP 131 / 80; Pulse 98; Resp 20; Temp 98.3; Pulse Ox 100% ; Pain 0/10; jj7 04:00 BP 117 / 60; Pulse 90; Resp 18; Temp 97.9; Pulse Ox 100% ; Pain 0/10; jj7 05:00 BP 123 / 76; Pulse 85; Resp 17; Temp 98.3; Pulse Ox 100% ; jj7 05:45 BP 137 / 81; Pulse 90; Resp 17; Temp 97.9; Pulse Ox 100% ; Pain 0/10; jj7 00:25 Body Mass Index 39.06 (109.77 kg, 167.64 cm) as6 00:25 Pain Scale: Adult as6 03:01 Pain Scale: Adult jj7 04:00 Pain Scale: Adult jj7 05:45 Pain Scale: Adult jj7 Elvis Coma Score: 01:01 Eye Response: spontaneous(4). Motor Response: obeys commands(6). Verbal Response: rv oriented(5). Total: 15. MDM: 00:21 Patient medically screened. sb4 02:15 Differential diagnosis: dysmenorrhea, endometriosis, menometrorrhagia, menorrhea, sb4 ruptured ectopic . 03:00 Data reviewed: vital signs, nurses notes, lab test result(s), I have discussed the sb4 patient's presentation/case with the attending Emergency Department Physician; and as a result, I will discharge patient. Consideration of Admission/Observation Escalation of care including admission/observation considered. Counseling: I had a detailed discussion with the patient and/or guardian regarding the historical points, exam findings, and any diagnostic results supporting the discharge/admit diagnosis, lab results, the need for outpatient follow up, a aircraft armorer, to return to the emergency department if symptoms worsen or persist or if there are any questions or concerns that arise at home. Special discussion:. 02/05 00:31 Order name: Basic Metabolic Panel; Complete Time: 01:20 sb4 02/05 00:31 Order name: CBC with Diff; Complete Time: 00:58 sb4 02/05 01:01 Order name: Type And Screen sb4 02/05 01:34 Order name: Packed RBC Leukored EDMN 02/05 00:31 Order name: IV Saline Lock; Complete Time: 00:57 sb4 02/05 00:31 Order name: Labs collected and sent; Complete Time: 00:57 sb4 02/05 01:23 Order name: Transfuse; Complete Time: 03:45 sb4 Administered Medications: 01:01 Drug: diphenhydrAMINE IVP 12.5 mg IVP once; prior to blood transfusion Route: IVP; rv Site: right antecubital; Disposition Summary: 02/05/23 03:02 Discharge Ordered Notes: Location: Home sb4 Problem: an ongoing problem sb4 Symptoms: have improved sb4 Condition: Stable sb4 Diagnosis - symptomatic anemia secondary to severe menorrhagia sb4 Followup: sb4 - With: Emergency Department - When: As needed - Reason: Trouble breathing, Worsening of condition Discharge Instructions: - Discharge Summary Sheet sb4 - Menorrhagia, [id number] sb4 - Laparoscopically Assisted Vaginal Hysterectomy sb4 - Blood Transfusion, Adult, Care After, [id number] sb4 Forms: - Medication Reconciliation Form sb4 - Thank You Letter sb4 - Antibiotic Education sb4 - Prescription Opioid Use sb4 - Patient Portal Instructions sb4 - Leadership Thank You Letter sb4 Addendum: 02/06/2023 20:10 Co-signature as Attending Physician, Delmar Wolf MD. e c2 Signatures: Dispatcher [employer] Facundo Briseno, RN RN Sagar Meneses RN RN as6 Rena Lama, SIERRA ESQUIVEL sb4 Delmar Wolf MD MD ec2 Corrections: (The following items were deleted from the chart) 02/05 01:14 00:31 ABO/RH TYPING+BB.LAB.BRZ ordered. ROSSY BLAIR
--- NOTE | 2023-02-05 03:02 | ER ---
Nurse's Notes [facility] Name: Peyton Shen Age: 32 yrs Sex: Female : 1990 Arrival Date: 02/05/2023 Time: 00:10 Bed 15 Private MD: Diagnosis: symptomatic anemia secondary to severe menorrhagia Presentation: 02/05 00:25 Chief complaint: Patient states: pt has had vaginal bleeding since August and had her as6 blood checked and her hemoglobin was 6.2. pt reports "feeling like I've run a marathon", dizzy, short of breath. Coronavirus screen: At this time, the client does not indicate any symptoms associated with coronavirus-19. Ebola Screen: No symptoms or risks identified at this time. Initial Sepsis Screen: Does the patient meet any 2 criteria? No. Patient's initial sepsis screen is negative. Does the patient have a suspected source of infection? No. Patient's initial sepsis screen is negative. Risk Assessment: Do you want to hurt yourself or someone else? Patient reports no desire to harm self or others. Onset of symptoms was February 05, 2023. 00:25 Acuity: BEN 2 as6 00:25 Method Of Arrival: Ambulatory as6 CREDIT UNION EXAMINER: 00:27 LMP 02/05/2023, unknown as6 00:42 3, Full Term 3, Premature 0, 0, Living 3, unknown sb4 Historical: - Allergies: 00:24 No Known Drug Allergies; as6 - PMHx: 00:24 Anxiety; gestational hypertension; PCOS; as6 - PSHx: 00:24 section; as6 - Immunization history:: Adult Immunizations up to date. - Social history:: Smoking status: Patient denies any tobacco usage or history of. Screenin:27 [facility] ED Fall Risk Assessment (Adult) Score/Fall Risk Level 0 - 2 = Low Risk. Abuse as6 screen: Denies threats or abuse. Denies injuries from another. Nutritional screening: No deficits noted. Tuberculosis screening: No symptoms or risk factors identified. Assessment: 01:01 General: Appears in no apparent distress. comfortable, Behavior is calm, cooperative. rv Pain: Denies pain. Neuro: Level of Consciousness is awake, alert, obeys commands, Oriented to person, place, time, situation. Cardiovascular: Rhythm is sinus tachycardia. Respiratory: Airway is patent Respiratory effort is even, unlabored, Breath sounds are clear bilaterally. Derm: Skin is intact. 02:07 Reassessment: Patient and/or family updated on plan of care and expected duration. Pain jj7 level reassessed. Patient is alert, oriented x 3, equal unlabored respirations, skin warm/dry/pink. ASSUMED CARE OF PT. PT SITTING UP IN BED. NO DISTRESS NOTED. INFORMED PT WE ARE WAITING ON BLOOD TO START FIRST UNIT. PILLOW PROVIDED. VS STABLE. CALL YAÑEZ IN REACH. FAMILY AT BEDSIDE. 03:00 Reassessment: Patient and/or family updated on plan of care and expected duration. Pain jj7 level reassessed. Patient is alert, oriented x 3, equal unlabored respirations, skin warm/dry/pink. 03:45 General: discharge pending completion of blood transfusion . as6 04:00 Reassessment: Patient and/or family updated on plan of care and expected duration. Pain jj7 level reassessed. Patient is alert, oriented x 3, equal unlabored respirations, skin warm/dry/pink. Vital Signs: 00:25 BP 147 / 80; Pulse 126; Resp 20 S; Temp 98.6(TE); Pulse Ox 100% on R/A; Weight 109.77 as6 kg (R); Height 5 ft. 6 in. (R); Pain 0/10; 01:20 BP 141 / 92; Pulse 109; Resp 18; Pulse Ox 100% ; rv 02:13 BP 145 / 87; Pulse 105; Resp 19; Pulse Ox 100% ; jj7 03:01 BP 131 / 80; Pulse 98; Resp 20; Temp 98.3; Pulse Ox 100% ; Pain 0/10; jj7 04:00 BP 117 / 60; Pulse 90; Resp 18; Temp 97.9; Pulse Ox 100% ; Pain 0/10; jj7 05:00 BP 123 / 76; Pulse 85; Resp 17; Temp 98.3; Pulse Ox 100% ; jj7 05:45 BP 137 / 81; Pulse 90; Resp 17; Temp 97.9; Pulse Ox 100% ; Pain 0/10; jj7 00:25 Body Mass Index 39.06 (109.77 kg, 167.64 cm) as6 00:25 Pain Scale: Adult as6 03:01 Pain Scale: Adult jj7 04:00 Pain Scale: Adult jj7 05:45 Pain Scale: Adult jj7 [place] Coma Score: 01:01 Eye Response: spontaneous(4). Motor Response: obeys commands(6). Verbal Response: rv oriented(5). Total: 15. ED Course: 00:13 Patient arrived in ED. mr 00:16 Facundo Dean, RN is Primary Nurse. rv 00:19 Arm band placed on. as6 00:21 Rena Lama PA-C is PHCP. sb4 00:21 Delmar Wolf MD is Attending Physician. sb4 00:27 Triage completed. as6 00:28 Bed in low position. Call light in reach. as6 01:01 Client placed on continuous cardiac and pulse oximetry monitoring. NIBP monitoring rv applied. 01:02 Inserted saline lock: 20 gauge in right antecubital area, using aseptic technique. rv Blood collected. 05:45 Provided Education on: Blood Transfusion. jj7 05:45 No provider procedures requiring assistance completed. IV discontinued, intact, jj7 bleeding controlled, No redness/swelling at site. Pressure dressing applied. Administered Medications: 01:01 Drug: diphenhydrAMINE IVP 12.5 mg IVP once; prior to blood transfusion Route: IVP; rv Site: right antecubital; Medication: 00:28 VIS not applicable for this client. Outcome: 03:02 Discharge ordered by . sb4 05:45 Discharged to home ambulatory, with friend, lorie 05:45 Condition: improved 05:45 Discharge instructions given to patient, Instructed on discharge instructions, follow up and referral plans. Demonstrated understanding of instructions, follow-up care, 05:53 Patient left the ED. jj7 Signatures: Isis Souza, Reg Reg mr JermaineFacundo, RN RN rv Sagar Ching RN RN as6 Jesus Ramirez RN RN jj7 Brown, Sophia, PA-C PA-C sb4
[2023-02-05 06:08] VITALS: O2SAT 100
[2023-02-05 06:24] VITALS: BP 137/81; TEMP 97.9
== END 2023-02-05 05:53 | disposition home or self-care (01) ==
LOC: ER 00:10
PROC: 30233N1 Transfusion of Nonautologous Red Blood Cells into Peripheral Vein, Percutaneous Approach (ICD-10-PCS; principal; 2023-02-05)
DX: D50.0 Iron deficiency anemia secondary to blood loss (chronic) (principal)
CPT/HCPCS: 85025; 80048; 36415; 86900; 86850; 86901; 86920 ×3; 96374; 99284; 36430; J1200; P9016 ×2; J7050 ×2

== ENCOUNTER 2023-02-06 17:05 | Emergency (ER) | payer OTHER ==
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
[2023-02-06 18:00] LABS: Absolute Lymphocytes (CBC) 1.7 K/uL (0.7-4.9); Hematocrit 27.1 % (36.0-45.0); Lymphocytes % 18.5 % (15.3-44.8); MCV 62.2 fL (80-100); MPV 9.2 fL (7.6-11.3); Platelets 242 thou/uL (152-406); RBC Red Blood Cell Count 4.36 M/uL (3.86-4.86)
[2023-02-06 18:24] LABS: Potassium 3.4 mEq/L (3.5-5.1); Troponin High Sensitivity 5.1 pg/mL (<58.9)
--- NOTE | 2023-02-06 18:30 | RAD REPORT ---
EXAM DESCRIPTION: [place] Single View02/06/2023 5:57 pm CLINICAL HISTORY: DYSPNEA COMPARISON: CHEST PA AND LAT 2 VIEW dated 05/18/2010 TECHNIQUE: Portable AP view of the chest. FINDINGS: The lungs are clear. No pneumothorax or effusion. The cardiomediastinal contours are unre markable. IMPRESSION: No acute cardiopulmonary process.
--- NOTE | 2023-02-06 18:39 | EDPHYS ---
Physician Documentation [facility] Name: Peyton Shen Age: 33 yrs Sex: Female : 1990 Arrival Date: 02/06/2023 Time: 17:05 Bed 3 Private MD: ED Physician Ralph Quiroga HPI: 02/06 17:20 This 33 yrs old Female presents to ER via Ambulatory with complaints of Chest jh7 discomfort, Shortness Of Breath. 17:20 Onset: The symptoms/episode began/occurred yesterday. Associated signs and symptoms: jh7 Pertinent negatives: abdominal pain, dysuria, fever, sore throat, vomiting, wheezing. Patient reports mild shortness of breath and slight chest tightness since yesterday. Reports that she has a history of iron deficiency anemia and had a blood transfusion yesterday. Also reports a history of anxiety and states that she currently does not take any medication. She reports that she feels this may be her anxiety but wants to get checked out just to be sure.. Historical: - Allergies: 17:20 Red Dye; mb9 - Home Meds: 17:20 control [Active]; mb9 - PMHx: 17:20 Anxiety; gestational hypertension; PCOS; mb9 - PSHx: 17:20 section; mb9 - Immunization history:: Adult Immunizations up to date. - Social history:: Smoking status: Patient denies any tobacco usage or history of. ROS: 17:20 Constitutional: Negative for fever, chills, and weight loss, Eyes: Negative for injury, jh7 pain, redness, and discharge, Neck: Negative for injury, pain, and swelling, Cardiovascular: Negative for chest pain, palpitations, and edema, Abdomen/GI: Negative for abdominal pain, nausea, vomiting, diarrhea, and constipation, Back: Negative for injury and pain, MS/Extremity: Negative for injury and deformity, Skin: Negative for injury, rash, and discoloration, Neuro: Negative for headache, weakness, numbness, tingling, and seizure, 17:20 Respiratory: Positive for shortness of breath, Negative for cough, wheezing, 17:20 All other systems are negative, Exam: 17:20 Constitutional: This is a well developed, well nourished patient who is awake, alert, jh7 and in no acute distress. Head/Face: Normocephalic, atraumatic. Cardiovascular: Regular rate and rhythm with a normal S1 and S2. No gallops, murmurs, or rubs. Normal PMI, no JVD. No pulse deficits. Respiratory: Lungs have equal breath sounds bilaterally, clear to auscultation and percussion. No rales, rhonchi or wheezes noted. No increased work of breathing, no retractions or nasal flaring. Abdomen/GI: Soft, non-tender, with normal bowel sounds. No distension or tympany. No guarding or rebound. No evidence of tenderness throughout. Back: No spinal tenderness. No costovertebral tenderness. Full range of motion. Skin: Warm, dry with normal turgor. Normal color with no rashes, no lesions, and no evidence of cellulitis. MS/ Extremity: Pulses equal, no cyanosis. Neurovascular intact. Full, normal range of motion. Neuro: Awake and alert, GCS 15, oriented to person, place, time, and situation. Motor strength 5/5 in all extremities. Sensory grossly intact. Normal gait. Vital Signs: 17:18 BP 149 / 90; Pulse 84; Resp 18; Temp 97.71; Pulse Ox 100% on R/A; Weight 109.77 kg; mb9 Height 5 ft. 6 in. ; 17:25 BP 150 / 84; Pulse 90; Resp 17; Pulse Ox 99% on R/A; rs5 18:30 BP 131 / 85; Pulse 78; Resp 18; Pulse Ox 99% on R/A; rs5 17:18 Body Mass Index 39.06 (109.77 kg, 167.64 cm) [facility] MDM: 17:09 Patient medically screened. [facility] 18:40 Differential diagnosis: pneumonia Anxiety, pulmonary embolism. Data reviewed: vital [facility] signs, nurses notes. Independent interpretation of the following test(s) in the Emergency Department EKG: See my EKG interpretation above. Scoring Tools PERC Rule for PE. Counseling: I had a detailed discussion with the patient and/or guardian regarding the historical points, exam findings, and any diagnostic results supporting the discharge/admit diagnosis, to return to the emergency department if symptoms worsen or persist or if there are any questions or concerns that arise at home. Special discussion: Agreed to prescribe hydroxyzine as needed for the patient's anxiety. She reports that she was on anxiety medication before but that it made her feel depressed. PCP follow-up advised.. 02/06 17:14 Order name: Basic Metabolic Panel; Complete Time: 18:34 [facility] 02/06 17:14 Order name: CBC with Diff [facility] 02/06 17:14 Order name: Troponin HS; Complete Time: 18:34 [facility] 02/06 17:14 Order name: XRAY Chest (1 view); Complete Time: 18:34 [facility] 02/06 17:14 Order name: EKG; Complete Time: 17:15 [facility] 02/06 17:14 Order name: Cardiac monitoring; Complete Time: 17:44 [facility] 02/06 17:14 Order name: EKG - Nurse/Tech; Complete Time: 17:44 [facility] 02/06 17:14 Order name: IV Saline Lock; Complete Time: 17:52 [facility] 02/06 17:14 Order name: Labs collected and sent; Complete Time: 17:52 [facility] 02/06 17:14 Order name: O2 Per Protocol; Complete Time: 17:52 [facility] 02/06 17:14 Order name: O2 Sat Monitoring; Complete Time: 17:52 [facility] EC:33 Rate is 91 beats/min. Rhythm is regular. QRS [place] is Normal. OK interval is normal at [facility] 152 msec. QRS interval is normal at 86 msec. QT interval is normal at 364 msec. No Q waves. T waves are Normal. No ST changes noted. Clinical impression: Normal ECG. Administered Medications: No medications were administered Disposition: 20:46 Co-signature as Attending Physician, Ralph Quiroga MD I reviewed the patient's care rt provided by the Advanced Practice Provider and agree with the diagnosis and treatment plan. Disposition Summary: 02/06/23 18:39 Discharge Ordered Notes: Location: Home [facility] Problem: new [facility] Symptoms: have improved [facility] Condition: Stable [facility] Diagnosis - Generalized anxiety disorder [facility] - Shortness of breath [facility] Followup: [facility] - With: Private Physician - When: 2 - 3 days - Reason: Recheck today's complaints Discharge Instructions: - Discharge Summary Sheet [facility] - Shortness of Breath, Adult [facility] - Generalized Anxiety Disorder, Adult [facility] Forms: - Medication Reconciliation Form [facility] - Thank You Letter [facility] - Patient Portal Instructions [facility] - Leadership Thank You Letter [facility] Prescriptions: - Hydroxyzine HCl 25 mg Oral Tablet - take 1 tablet ORAL route every 6 hours As needed; 30 tablet; Refills: 0, jh7 Product Selection Permitted Signatures: Dispatcher [employer] Ana Garcia FNP [employer] jh7 Isis Lara, RN RN mb9 Ralph Quiroga MD MD rt
--- NOTE | 2023-02-06 18:39 | ER ---
Nurse's Notes [facility] Name: Peyton Shen Age: 33 yrs Sex: Female : 1990 Arrival Date: 02/06/2023 Time: 17:05 Bed 3 Private MD: Diagnosis: Generalized anxiety disorder;Shortness of breath Presentation: 02/06 17:18 Chief complaint: Spouse and/or significant other states: "I was here yesterday for a mb9 blood transfusion due to heavy menstrual bleeding. Ever since, I've felt SOB and chest heaviness. I don't know if its's my anxiety but I wanted to get checked out.". Coronavirus screen: Vaccine status: Patient reports being unvaccinated. Ebola Screen: No symptoms or risks identified at this time. Initial Sepsis Screen: Does the patient meet any 2 criteria? No. Patient's initial sepsis screen is negative. Does the patient have a suspected source of infection? No. Patient's initial sepsis screen is negative. Risk Assessment: Do you want to hurt yourself or someone else? Patient reports no desire to harm self or others. Onset of symptoms was February 06, 2023. 17:18 Method Of Arrival: Ambulatory mb9 17:18 Acuity: BEN 3 mb9 Triage Assessment: 17:20 General: Appears in no apparent distress. Behavior is calm, cooperative. Pain: mb9 Complains of pain in chest. EENT: No signs and/or symptoms were reported regarding the EENT system. Neuro: [place] Agitation-Sedation Scale (RASS): 0 - Alert and Calm Level of Consciousness is awake, alert, obeys commands, Oriented to person, place, time, situation, Appropriate for age. Cardiovascular: Reports chest pain, shortness of breath, Patient's skin is warm and dry. Respiratory: Reports shortness of breath Airway is patent Respiratory effort is even, unlabored, Respiratory pattern is regular, symmetrical. Respiratory: Onset: The symptoms/episode began/occurred gradually, the patient has mild shortness of breath. GI: No signs and/or symptoms were reported involving the gastrointestinal system. : No signs and/or symptoms were reported regarding the genitourinary system. Derm: Skin is pink, warm \\T\\ dry. Musculoskeletal: Range of motion: intact in all extremities. Historical: - Allergies: 17:20 Red Dye; mb9 - Home Meds: 17:20 control [Active]; mb9 - PMHx: 17:20 Anxiety; gestational hypertension; PCOS; mb9 - PSHx: 17:20 section; mb9 - Immunization history:: Adult Immunizations up to date. - Social history:: Smoking status: Patient denies any tobacco usage or history of. Screenin:20 [facility] ED Fall Risk Assessment (Adult) History of falling in the last 3 months, rs5 including since admission No falls in past 3 months (0 pts) Confusion or Disorientation No (0 pts) Intoxicated or Sedated No (0 pts) Impaired Gait No (0 pts) Mobility Assist Device Used No (0 pt) Altered Elimination No (0 pt) Score/Fall Risk Level 0 - 2 = Low Risk Oriented to surroundings, Maintained a safe environment. Abuse screen: Denies threats or abuse. Nutritional screening: No deficits noted. Tuberculosis screening: No symptoms or risk factors identified. Assessment: 17:20 General: Appears in no apparent distress. comfortable, Behavior is calm, cooperative. rs5 17:20 Pain: Denies pain. Neuro: Level of Consciousness is awake, alert, obeys commands, rs5 Oriented to person, place, time, situation. Cardiovascular: Reports chest discomfort and pressure that started this morning. Pt denies chest pain Heart tones S1 S2 present Rhythm is irregular. Respiratory: Reports shortness of breath on exertion since this morning Airway is patent Respiratory effort is even, unlabored, Respiratory pattern is regular, symmetrical, Breath sounds are clear bilaterally. GI: Abdomen is round non-distended, Bowel sounds present X 4 quads. Abd is soft and non tender X 4 quads. : Reports having had a blood transfusion on 02/05/23 because she has been menstruating for several months now. EENT: No signs and/or symptoms were reported regarding the EENT system. Derm: Skin is intact, Skin is pink, warm \\T\\ dry. Musculoskeletal: Range of motion: intact in all extremities. 18:30 Reassessment: No changes from previously documented assessment. rs5 18:40 Reassessment: Patient and/or family updated on plan of care and expected duration. Pain rs5 level reassessed. Patient is alert, oriented x 3, equal unlabored respirations, skin warm/dry/pink. Vital Signs: 17:18 BP 149 / 90; Pulse 84; Resp 18; Temp 97.71; Pulse Ox 100% on R/A; Weight 109.77 kg; 9 Height 5 ft. 6 in. ; 17:25 BP 150 / 84; Pulse 90; Resp 17; Pulse Ox 99% on R/A; rs5 18:30 BP 131 / 85; Pulse 78; Resp 18; Pulse Ox 99% on R/A; rs5 17:18 Body Mass Index 39.06 (109.77 kg, 167.64 cm) [facility] ED Course: 17:07 Patient arrived in ED. mr 17:08 [facility] Rosenthal FNP [facility] 17:08 Ralph Quiroga MD is Attending Physician. [facility] 17:18 Arm band placed on. [facility] 17:20 Triage completed. [facility] 17:20 Patient has correct armband on for positive identification. Placed in gown. Bed in low rs5 position. Side rails up X2. 17:30 Inserted saline lock: 20 gauge in right antecubital area, using aseptic technique. rs5 Blood collected. 17:43 Billy Flores, RN is Primary Nurse. rs5 17:59 XRAY Chest (1 view) In Process Unspecified. EDMS 18:40 No provider procedures requiring assistance completed. rs5 18:40 IV discontinued, intact, bleeding controlled, No redness/swelling at site. Pressure rs5 dressing applied. Administered Medications: No medications were administered Medication: 18:40 VIS not applicable for this client. rs5 Outcome: 18:39 Discharge ordered by . [facility] 18:40 Discharged to home ambulatory, with family, rs5 18:40 Condition: stable 18:40 Discharge instructions given to patient, Instructed on discharge instructions, follow up and referral plans. medication usage, Demonstrated understanding of instructions, follow-up care, medications, Prescriptions given X 1, 19:06 Patient left the ED. jb4 Signatures: Dispatcher [employer] EDRI Isis Souza, Reg Rickey Juarez Jenkins, RN RN jbAna Jacob FNP [place] [id number] Isis Lara, RN RN mb9 Billy Flores, RN RN rs5 Corrections: (The following items were deleted from the chart) 18:00 17:20 : No signs and/or symptoms were reported regarding the genitourinary system. [id number]
[2023-02-06 19:58] VITALS: O2SAT 99
[2023-02-06 20:00] VITALS: BP 150/84
[2023-02-06 21:03] LABS: Anisocytosis 3+; Blood Morphology Comment NOTED (NOT SEEN); Hypochromasia 1+; Platelet Estimate ADEQ; Poikilocytosis 1+; Polychromasia 1+; White Blood Cell Scan OK (OK)
[2023-02-06 21:04] LABS: Ovalocytes SLIGHT; Teardrop Cell FEW
--- NOTE | 2023-02-08 13:53 | EKG ---
Test Date: 2023-02-06 Test Time: 17:33:05 Supervisor Lens Generating: SHAHNAZ MEASUREMENT RESULTS: Intervals: Rate: 91 NH: 152 QRSD: 86 QT: 364 QTc: 447 [place]: P: 32 NH: 152 QRS: 30 T: 26 INTERPRETIVE STATEMENTS: Normal sinus rhythm Normal ECG No previous ECG available for comparison Electronically Signed On 02-08-23 13:50:32 CDT by Rich Le
== END 2023-02-06 19:06 | disposition home or self-care (01) ==
LOC: ER 17:05
DX: F41.1 Generalized anxiety disorder (principal); Z91.02 Food additives allergy status
CPT/HCPCS: 36415; 71045; 80048; 84484; 85025; 93005; 99284